=== PATIENT | female | born 1995 | race African-American/Black ===

== ENCOUNTER 2018-11-18 13:50 | Emergency (ER) | payer MEDICAID ==
[~2018-11-18] VITALS: Ht 165.1 cm; Wt 62.6 kg
[2018-11-18] MEDS ORDERED: NKM (14:10)
--- NOTE | 2018-11-18 14:21 | NUR ---
ED Nurse Note: Pt came in from home due to medial abdominal pain with n/v x 4 days, pain 8/10 levi. Emesis was bile and fluid. Last bowel movement was yesterday. AOx4, VSS levi. Will cont to monitor.
--- NOTE | 2018-11-18 14:38 | Emergency Room Report ---
History of Present Illness General Chief Complaint: Abdominal Pain Source: Patient Present Illness [facility] This is an otherwise healthy 23-year-old female who complains of 4 days of nausea and vomiting with crampy abdominal pain. She also complains of some dysuria and foul-smelling urine. She denies any vaginal discharge. She states that she started her period yesterday. She states that she is not able to keep any solid food but is able to keep down liquid. She denies any fever. No other associated symptoms. She denies any back pain. Allergies: Coded Allergies: MORPHINE (Verified Allergy, Unknown, 11/18/18) Patient History Last Menstrual Period: currently on period Now: No Nursing Documentation-[facility] Past Medical History: No Stated History Review of Systems All Other Systems: negative except mentioned in HPI Physical Exam Vital Signs Date Time Temp Pulse Resp B/P (MAP) Pulse Ox O2 Delivery O2 Flow Rate FiO2 11/18/18 14:04 98.4 99 20 112/78 98 Room Air General Appearance: well appearing, no apparent distress Head: normocephalic, atraumatic ENT: hearing grossly normal, normal voice Neck: full range of motion, supple Respiratory: no respiratory distress, speaking full sentences Gastrointestinal: soft, no mass, non-distended, other - mild diffuse tenderness. Musculoskeletal: no calf tenderness Neurologic: alert, normal gait Medical Decision Making Diagnostic Impression: Primary Impression: Abdominal pain ER Course Patient was seen and examined. Delivery concern about ectopic , pyelonephritis, ischemic bowel, bowel obstruction, appendicitis, diverticulitis , pelvic inflammatory disease. When I reexamined the patient, the patient has absolutely no abdominal tenderness. The patient is tolerated by mouth challenge. The patient is afebrile. Urinalysis was reviewed. She does have significant amount of ketones which prompted me to start IV fluids for volume resuscitation. When I reexamined the patient, her abdomen is soft and nontender. At this time, I feel the patient may be treated symptomatically with very close follow-up to her primary care physician to return sooner if is any change in symptoms or worsening symptoms. Laboratory Tests Test 11/18/18 14:25 White Blood Count 5.5 K/UL (4.8-10.8) Red Blood Count 4.66 M/UL (4.20-5.40) Hemoglobin 13.9 G/DL (12.0-16.0) Hematocrit 41.9 % (37.0-47.0) Mean Corpuscular Volume 90 FL (80-99) Mean Corpuscular Hemoglobin 29.9 PG (27.0-31.0) Mean Corpuscular Hemoglobin Concent 33.3 G/DL (32.0-36.0) Red Cell Distribution Width 11.8 % (11.6-14.8) Platelet Count 333 K/UL (150-450) Mean Platelet Volume 7.6 FL (6.5-10.1) Neutrophils (%) (Auto) 64.6 % (45.0-75.0) Lymphocytes (%) (Auto) 28.0 % (20.0-45.0) Monocytes (%) (Auto) 6.0 % (1.0-10.0) Eosinophils (%) (Auto) 0.2 % (0.0-3.0) Basophils (%) (Auto) 1.3 % (0.0-2.0) Urine Color Yellow Urine Appearance Clear Urine pH 6 (4.5-8.0) Urine Specific [place] 1.025 (1.005-1.035) Urine Protein 2+ (NEGATIVE) H Urine Glucose (UA) Negative (NEGATIVE) Urine Ketones 4+ (NEGATIVE) H Urine Blood 1+ (NEGATIVE) H Urine Nitrite Negative (NEGATIVE) Urine Bilirubin Negative (NEGATIVE) Urine Urobilinogen 1 MG/DL (0.0-1.0) H Urine Leukocyte Esterase 1+ (NEGATIVE) H Urine RBC 0-2 /HPF (0 - 2) Urine WBC 2-4 /HPF (0 - 2) Urine Squamous Epithelial Cells Few /LPF (NONE/OCC) Urine Bacteria Few /HPF (NONE) Urine Mucus Moderate /LPF (NONE/OCC) H Sodium Level 141 MMOL/L (136-145) Potassium Level 3.2 MMOL/L (3.5-5.1) L Chloride Level 102 MMOL/L (98-107) Carbon Dioxide Level 27 MMOL/L (21-32) Anion Gap 12 mmol/L (5-15) Blood Urea Nitrogen 13 mg/dL (7-18) Creatinine 1.0 MG/DL (0.55-1.30) Estimate Glomerular Filtration Rate > 60 mL/min (>60) Glucose Level 110 MG/DL (74-106) H Calcium Level 9.2 MG/DL (8.5-10.1) Total Bilirubin 0.4 MG/DL (0.2-1.0) Aspartate Amino Transferase (AST) 33 U/L (15-37) Alanine Aminotransferase (ALT) 33 U/L (12-78) Alkaline Phosphatase 60 U/L (46-116) Total Protein 8.1 G/DL (6.4-8.2) Albumin 4.0 G/DL (3.4-5.0) Globulin 4.1 g/dL Albumin/Globulin Ratio 1.0 (1.0-2.7) Lipase 126 U/L (73-393) Human Chorionic Gonadotropin, Quant 1 mIU/mL (1-6) Last Vital Signs Date Time Temp Pulse Resp B/P (MAP) Pulse Ox O2 Delivery O2 Flow Rate FiO2 11/18/18 14:22 99 20 Room Air 11/18/18 14:04 98.4 112/78 98 Status: improved Disposition: HOME, SELF-CARE Condition: Stable Scripts Famotidine (PEPCID AC) 20 Mg Tablet 20 MG PO BID for 7 Days, #14 TAB 0 Refills Prov: CHECO CLIFTON 11/18/18 Ondansetron Hcl (ZOFRAN) 4 Mg/5 Ml Solution 4 MG ORAL Q6H PRN for Nausea & Vomiting, #10 ML 0 Refills Prov: CHECO CLIFTON 11/18/18 Dicyclomine Hcl (BENTYL) 10 Mg/1 Ml Ampul 10 MG IM QID for pain, #10 AMP 0 Refills Prov: CHECO CLIFTON 11/18/18 Referrals: [facility],REFERRING (PCP) Patient Instructions: Abdominal Pain, Adult CHECO CLIFTON Nov 18, 2018 14:38
[2018-11-18 14:47] LABS: APPEARANCE,URINE CLEAR; BASOPHILS % (AUTO) 1.3 % (0.0-2.0); BILIRUBIN, URINE NEGATIVE (NEGATIVE); EOSINOPHILS % (AUTO) 0.2 % (0.0-3.0); GLUCOSE, URINE (UA) NEGATIVE (NEGATIVE); HEMATOCRIT 41.9 % (37.0-47.0); HEMOGLOBIN 13.9 G/DL (12.0-16.0); KETONES,URINE 4+ (NEGATIVE); LEUKOCYTE ESTERASE ,URINE 1+ (NEGATIVE); MEAN CORPUSCULAR VOLUME 90 FL (80-99); NEUTROPHILS % (AUTO) 64.6 % (45.0-75.0); NITRITE,URINE NEGATIVE (NEGATIVE); PH,URINE 6 (4.5-8.0); PLATELET COUNT 333 K/UL (150-450); PROTEIN,URINE 2+ (NEGATIVE); RED BLOOD COUNT 4.66 M/UL (4.20-5.40); RED CELL DISTRIBUTION WIDTH 11.8 % (11.6-14.8); UROBILINOGEN,URINE 1 MG/DL (0.0-1.0); WHITE BLOOD COUNT 5.5 K/UL (4.8-10.8)
[2018-11-18 14:57] LABS: ANION GAP 12 mmol/L (5-15); BLOOD UREA NITROGEN 13 mg/dL (7-18); CALCIUM 9.2 MG/DL (8.5-10.1); CARBON DIOXIDE 27 MMOL/L (21-32); CHLORIDE 102 MMOL/L (98-107); POTASSIUM 3.2 MMOL/L (3.5-5.1); SODIUM 141 MMOL/L (136-145)
[2018-11-18 14:59] LABS: COLOR,URINE YELLOW
[2018-11-18 15:01] LABS: ALANINE AMINOTRANSFERASE 33 U/L (12-78); ALKALINE PHOSPHATASE 60 U/L (46-116); ASPARTATE AMINO TRANSFERASE 33 U/L (15-37); BILIRUBIN,TOTAL 0.4 MG/DL (0.2-1.0)
[2018-11-18 15:21] VITALS: BP 116/76
[2018-11-18] MEDS ORDERED: Ketorolac 30mg Inj IV ONE (15:30)
[2018-11-18] MEDS ORDERED: BENTYL10 MG/1 ML IM (16:19)
[2018-11-18] MEDS ORDERED: ZOFRAN4 MG/5 ML ORAL (16:19)
[2018-11-18] MEDS ORDERED: PEPCID AC20 M2 PO (16:19)
[2018-11-18 16:44] VITALS: BP 112/69
[2018-11-18 16:45] VITALS: BP 116/76
--- NOTE | 2018-11-18 16:45 | NUR ---
ER DISCHARGE NOTE: Patient is cleared to be discharged per ERMD, pt is aox4, on room air, with stable vital signs. pt was given dc and prescription instructions, pt was able to verbalize understanding, pt id band and iv site removed without complications. pt is able to ambulate with steady gait. pt took all belongings.
== END 2018-11-18 16:45 | disposition home or self-care (01) ==
LOC: EMR 14:25
DX: R10.9 Unspecified abdominal pain (principal); R30.0 Dysuria; R11.2 Nausea with vomiting, unspecified; Z88.5 Allergy status to narcotic agent
CPT/HCPCS: 36415; 80053; 81003; 83690; 84702; 85025; 96361; 96374; 96375; 99284; J1885; J2405; S0028

== ENCOUNTER 2019-01-09 21:01 | Emergency (ER) | payer MEDICAID ==
[~2019-01-09] VITALS: Ht 165.1 cm; Wt 61.7 kg
[~2019-01-09 21:01] MED LIST: BENTYL10 MG/1 ML IM; NKM; PEPCID AC20 M2 PO; ZOFRAN4 MG/5 ML ORAL
[2019-01-09 21:18] VITALS: BP 107/71
--- NOTE | 2019-01-09 21:18 | NUR ---
ED Nurse Note: Pt arrived ED from home, c/o lower abdominal pain and flu like symptums for 2 days. Pt is A/O X4. Vital signs stable at this time. waiting for orders.
--- NOTE | 2019-01-09 21:21 | Emergency Room Report ---
History of Present Illness General Chief Complaint: Flu Like Symptoms Source: Patient Present Illness HPI Is a 23-year-old female with no past medical history. She presents with chief complaint of fever chills and body aches. Also with some foul-smelling urine. Fever subjective. No nausea no vomiting. No sore throat. No cough or congestion. Has not take anything for this. Pain is 7 out of 10. Allergies: Coded Allergies: MORPHINE (Verified Allergy, Unknown, 01/09/19) Patient History Past Medical History: see triage record, old chart reviewed Past Surgical History: none Pertinent Family History: none Social History: Denies: smoking Last Menstrual Period: 12-18-2018 Now: No Immunizations: other Reviewed Nursing Documentation: PMH: Agreed; PSxH: Agreed Review of Systems Constitutional: Reports: chills, fever Eye: Denies: eye pain, blurred vision ENT: Denies: ear pain, nose congestion, throat swelling Respiratory: Denies: cough, shortness of breath Cardiovascular: Denies: chest pain, palpitations Gastrointestinal: Denies: abdominal pain, diarrhea, nausea, vomiting Musculoskeletal: Reports: joint pain; Denies: back pain Skin: Denies: rash Neurological: Denies: headache, numbness Endocrine: Denies: increased thirst, increased urine Hematologic/Lymphatic: Denies: easy bruising All Other Systems: negative except mentioned in HPI Physical Exam Vital Signs Date Time Temp Pulse Resp B/P (MAP) Pulse Ox O2 Delivery O2 Flow Rate FiO2 01/09/19 21:09 98.6 96 16 96 Room Air vitals normal Sp02 EP Interpretation: reviewed, normal General Appearance: well appearing, no apparent distress, alert Head: normocephalic, atraumatic Eyes: bilateral eye PERRL, bilateral eye EOMI ENT: hearing grossly normal, normal pharynx Neck: full range of motion, supple, no meningismus Respiratory: chest non-tender, lungs clear, normal breath sounds Cardiovascular #1: regular rate, rhythm, no murmur Gastrointestinal: normal bowel sounds, non tender, no mass, no organomegaly, no bruit, non-distended Musculoskeletal: back normal, gait/station normal, normal range of motion Psychiatric: mood/affect normal Skin: warm/dry Medical Decision Making Diagnostic Impression: Primary Impression: UTI (urinary tract infection) Qualified Codes: N30.00 - Acute cystitis without hematuria ER Course Patient presents with symptoms consistent with UTI. No evidence of any pyelonephritis or sepsis. We'll discharge home. Last Vital Signs Date Time Temp Pulse Resp B/P (MAP) Pulse Ox O2 Delivery O2 Flow Rate FiO2 01/09/19 21:09 98.6 96 16 96 Room Air Status: improved Disposition: HOME, SELF-CARE Condition: Stable Scripts Ibuprofen* (MOTRIN*) 600 Mg Tablet 600 MG ORAL THREE TIMES A DAY, #30 TAB 0 Refills Prov: Abdiel Colon MD 01/09/19 Cephalexin* (KEFLEX*) 500 Mg Capsule 500 MG ORAL TID, #21 CAP 0 Refills Prov: Abdiel Colon MD 01/09/19 Additional Instructions: Follow-up with your doctor in 7 days. Return if symptom worsen. Abdiel Colon MD January 09, 2019 21:21
--- NOTE | 2019-01-09 21:45 | NUR ---
ED Nurse Note: Meds given as ordered.
[2019-01-09 21:57] LABS: APPEARANCE,URINE CLEAR; BILIRUBIN, URINE NEGATIVE (NEGATIVE); GLUCOSE, URINE (UA) NEGATIVE (NEGATIVE); KETONES,URINE 1+ (NEGATIVE); LEUKOCYTE ESTERASE ,URINE 1+ (NEGATIVE); NITRITE,URINE NEGATIVE (NEGATIVE); PH,URINE 6 (4.5-8.0); PROTEIN,URINE 2+ (NEGATIVE); UROBILINOGEN,URINE 1 MG/DL (0.0-1.0)
[2019-01-09 22:00] LABS: COLOR,URINE YELLOW
[2019-01-09] MEDS ORDERED: CEPHALEXIN500 MG ORAL (22:10)
[2019-01-09] MEDS ORDERED: IBUPROFEN600 MG ORAL (22:10)
[2019-01-09] MEDS ORDERED: Cephalexin 500mg cap ORAL ONE (22:15)
[2019-01-09 22:17] VITALS: BP 105/70
--- NOTE | 2019-01-09 22:17 | NUR ---
ER DISCHARGE NOTE: Patient is cleared to be discharged per Dr. Colon. Pt is aox4 on room air with stable vital signs. Pt was given D/C and prescription instructions and was able to verbalize understanding. Pt's ID band removed. Pt is able to ambulate with steady gait and took all belongings.
== END 2019-01-09 22:17 | disposition home or self-care (01) ==
LOC: EMR 21:22
DX: N39.0 Urinary tract infection, site not specified (principal); Z88.5 Allergy status to narcotic agent
CPT/HCPCS: 81003; 81025; 87086; 87181; 99283

== ENCOUNTER 2019-07-22 22:39 | Emergency (ER) | payer MEDICAID ==
[~2019-07-22] VITALS: Ht 162.6 cm; Wt 63.5 kg
[~2019-07-22 22:39] MED LIST changes: +CEPHALEXIN500 MG ORAL; +IBUPROFEN600 MG ORAL
--- NOTE | 2019-07-22 22:56 | NUR ---
ED Nurse Note: Pt ambulated to ed c/o mid back pain x 2-3 days. pt states pain is nonradiating and her norco is ineffective. pt urine specimen collected and sent to lab.
[2019-07-22 22:59] VITALS: BP 124/73
--- NOTE | 2019-07-22 23:22 | NUR ---
ED Nurse Note: pt was given pain medication. pt tolerated well.
[2019-07-22 23:27] LABS: APPEARANCE,URINE CLEAR; BILIRUBIN, URINE NEGATIVE (NEGATIVE); GLUCOSE, URINE (UA) NEGATIVE (NEGATIVE); KETONES,URINE 1+ (NEGATIVE); LEUKOCYTE ESTERASE ,URINE 1+ (NEGATIVE); NITRITE,URINE NEGATIVE (NEGATIVE); PH,URINE 6 (4.5-8.0); PROTEIN,URINE 1+ (NEGATIVE); UROBILINOGEN,URINE 1 MG/DL (0.0-1.0)
[2019-07-22] MEDS ORDERED: PERCOCET 5-3251 EACH ORAL (23:27)
[2019-07-22] MEDS ORDERED: IBUPROFEN600 MG ORAL (23:27)
[2019-07-22] MEDS ORDERED: LIDODERM700 M1 TOPIC (23:27)
--- NOTE | 2019-07-22 23:28 | Emergency Room Report ---
History of Present Illness General Chief Complaint: Back Pain-No Injury Source: Patient Present Illness [facility] This a 23-year-old female who had severe scoliosis as a kid. She required surgery and Ruiz lance placement. She presents with chief complaint of back pain. She get this occasionally. Recent pain started about 2 3 days ago. Localized to the upper back area. Pain is sharp. Worse with sitting on her feet. 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 This made the pain worse. No nausea no vomiting. No fever chills. No radiation. No focal deficit. Pain is 8 out of 10. Patient also want to check to see his have a urinary tract infection. Allergies: Coded Allergies: MORPHINE (Verified Allergy, Unknown, 01/09/19) Patient History Past Medical History: see triage record, old chart reviewed Past Surgical History: other Pertinent Family History: none Social History: Denies: smoking Last Menstrual Period: 07/17/19 Now: No : 3 Para: 1 Immunizations: other Reviewed Nursing Documentation: PMH: Agreed; PSxH: Agreed Nursing Documentation-[facility] Past Medical History: No Stated History Review of Systems Eye: Denies: eye pain, blurred vision ENT: Denies: ear pain, nose congestion, throat swelling Respiratory: Denies: cough, shortness of breath Cardiovascular: Denies: chest pain, palpitations Gastrointestinal: Denies: abdominal pain, diarrhea, nausea, vomiting Musculoskeletal: Reports: back pain; Denies: joint pain Skin: Denies: rash Neurological: Denies: headache, numbness Endocrine: Denies: increased thirst, increased urine Hematologic/Lymphatic: Denies: easy bruising All Other Systems: negative except mentioned in HPI Physical Exam Vital Signs Date Time Temp Pulse Resp B/P (MAP) Pulse Ox O2 Delivery O2 Flow Rate FiO2 07/22/19 22:50 98.4 88 17 124/73 (90) 98 Room Air vitals normal Sp02 EP Interpretation: reviewed, normal General Appearance: well appearing, no apparent distress, alert Head: normocephalic, atraumatic Eyes: bilateral eye PERRL, bilateral eye EOMI ENT: hearing grossly normal, normal pharynx Neck: full range of motion, supple, no meningismus Respiratory: chest non-tender, lungs clear, normal breath sounds Cardiovascular #1: regular rate, rhythm, no murmur Gastrointestinal: normal bowel sounds, non tender, no mass, no organomegaly, no bruit, non-distended Musculoskeletal: back normal - Midline scar from Ruiz lance. No redness. Diffuse tenderness., gait/station normal, normal range of motion Psychiatric: mood/affect normal Medical Decision Making Diagnostic Impression: Primary Impression: Back pain Qualified Codes: M54.6 - Pain in thoracic spine ER Course Patient presents with exacerbation of her chronic back pain. No evidence of cauda equina syndrome, spinal rib abscess or neoplastic process. Last Vital Signs Date Time Temp Pulse Resp B/P (MAP) Pulse Ox O2 Delivery O2 Flow Rate FiO2 07/22/19 22:59 98.4 88 17 124/73 98 Room Air Status: improved Disposition: HOME, SELF-CARE Condition: Stable Scripts Lidocaine Patch* (Lidoderm Patch*) 1 Each Adh..patch 1 PATCH TOPIC DAILY, #7 PATCH 0 Refills Patch(es) may remain in place for up to 12 hours in any 24-hour period. Prov: Abdiel Colon MD 07/22/19 Oxycodone/Acetaminophen 5-325* (PERCOCET 5-325 MG TABLET*) 1 Each Tablet 1 TAB ORAL Q6H PRN for For Pain, #20 TAB Prov: Abdeil Colon MD 07/22/19 Ibuprofen* (MOTRIN*) 600 Mg Tablet 600 MG ORAL THREE TIMES A DAY, #30 TAB 0 Refills Prov: Abdiel Colon MD 07/22/19 Referrals: NON PHYSICIAN (PCP) Patient Instructions: Back Pain, Adult Additional Instructions: Follow-up with your doctor in 7 days. No heavy lifting. If continue with pain , may need an MRI. Return if symptoms worsen. Abdiel Colon MD Jul 22, 2019 23:28
[2019-07-22] MEDS ORDERED: HYDROmorphone 1mg/ml Carpuject IM ONE (23:30)
[2019-07-22 23:34] LABS: COLOR,URINE PALE YELLOW
[2019-07-22 23:45] VITALS: BP 120/73
--- NOTE | 2019-07-22 23:45 | NUR ---
ED Nurse Note: pt dc per ermd, pt is aox4, friend will drive pt home. pt id band removed. pt give dc and rx instructions. pt verbalized understanding
== END 2019-07-22 23:45 | disposition home or self-care (01) ==
LOC: EMR 22:53
DX: M54.6 Pain in thoracic spine (principal); Z88.6 Allergy status to analgesic agent
CPT/HCPCS: 81003; 96372; J1170; Z7502; 99283

== ENCOUNTER 2019-08-13 16:03 | Emergency (ER) | payer MEDICAID ==
[~2019-08-13] VITALS: Ht 165.1 cm; Wt 62.6 kg
[~2019-08-13 16:03] MED LIST changes: +LIDODERM700 M1 TOPIC; +PERCOCET 5-3251 EACH ORAL
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
[2019-08-13 16:27] VITALS: BP 105/73
[2019-08-13] MEDS ORDERED: LIDODERM700 M1 TOPIC (17:00)
[2019-08-13] MEDS ORDERED: PERCOCET 10-321 EAC1 ORAL (17:00)
[2019-08-13] MEDS ORDERED: oxyCODONE HCL/Acetaminophen 5/325mg ORAL ONE (17:00)
== END 2019-08-13 17:20 | disposition home or self-care (01) ==
LOC: EMR 16:55
DX: S20.211A Contusion of right front wall of thorax, initial encounter (principal); M54.9 Dorsalgia, unspecified; M62.830 Muscle spasm of back; Z88.6 Allergy status to analgesic agent; V43.62XA Car passenger injured in collision with other type car in traffic accident, initial encounter; Y92.410 Unspecified street and highway as the place of occurrence of the external cause
CPT/HCPCS: 99282

== ENCOUNTER 2020-01-22 23:19 | Emergency (ER) | payer MEDICAID ==
[~2020-01-22] VITALS: Ht 162.6 cm; Wt 66.2 kg
[~2020-01-22 23:19] MED LIST changes: +PERCOCET 10-321 EAC1 ORAL; +ROBAXIN-750750 MG PO
--- NOTE | 2020-01-22 23:38 | NUR ---
ED Nurse Note: Pt ambulated to ED from home c/o vomiting all day today, pt unable to count how many times. Pt denies possibility of being due to IUD. Pt is a daily marijuana smoker, ERMD at bedside
--- NOTE | 2020-01-22 23:46 | Emergency Room Report ---
History of Present Illness General Chief Complaint: Vomiting Source: Patient Present Illness HPI Patient is a 24-year-old female presents after increased nausea and vomiting. Reports having multiple episodes of vomiting associated with decreased appetite. Reports having previous IUD. Denies being . Denies any abdominal pain. Denies any diarrhea. Previous scoliosis surgery. Had not been having any fever. Allergies: Coded Allergies: MORPHINE (Verified Allergy, Unknown, 01/09/19) COVID-19 Screening Contact w/high risk pt: No Recent Travel to affected area: No Experienced COVID-19 symptoms?: No COVID-19 Testing performed WIRELESS SALES MANAGER: No Patient History Past Medical History: see triage record Last Menstrual Period: unk Now: No : 3 Para: 1 Reviewed Nursing Documentation: PMH: Agreed; PSxH: Agreed Nursing Documentation-PMH Hx Cardiac Problems: No - hld Review of Systems All Other Systems: negative except mentioned in HPI Physical Exam Vital Signs Date Time Temp Pulse Resp B/P (MAP) Pulse Ox O2 Delivery O2 Flow Rate FiO2 01/22/20 23:30 98.4 92 16 112/71 (85) 97 Room Air Sp02 EP Interpretation: reviewed, normal General Appearance: normal inspection, well appearing, no apparent distress, alert, GCS 15 Head: atraumatic ENT: normal ENT inspection, hearing grossly normal, normal voice Neck: normal inspection, full range of motion, supple, no bony tend Respiratory: normal inspection, lungs clear, normal breath sounds, no respiratory distress, no retraction, no wheezing Cardiovascular #1: regular rate, rhythm, no edema Gastrointestinal: normal inspection, normal bowel sounds, non tender, soft, no guarding, no hernia Genitourinary: no CVA tenderness Musculoskeletal: normal inspection, back normal, normal range of motion Neurologic: alert, motor strength/tone normal, bass viol repairer III-XII nml as tested, oriented x3, responsive, speech normal, normal inspection Psychiatric: normal inspection, judgement/insight normal, mood/affect normal Skin: no rash Medical Decision Making Diagnostic Impression: Primary Impression: Marijuana use Additional Impression: Urinary tract infection ER Course Patient presented for abdominal pain. Differential diagnosis includes not limited to cyclic vomiting, bowel obstruction, gastroenteritis among others. Because of complexity of patient's case laboratory tests and imaging studies were ordered. Patient was noted to have history of near daily marijuana use. Patient was given IV fluids as well as IV antiemetics.Patient presented stable for close outpatient follow-up with her primary care physician. She was advised marijuana cessation. The patient is advised to follow up with primary care doctor in 1-2 days. Patient is advised to return if any worsening condition or if any changes in status that are concerning. This report is dictated with [employer] superintendent compressor stations software which may occasionally lead to discrepancies related to use of this software. Labs Test 01/22/20 23:45 01/23/20 00:00 Urine Color Yellow Urine Appearance Slightly cloudy Urine pH 6 (4.5-8.0) Urine Specific [place] 1.025 (1.005-1.035) Urine Protein 2+ (NEGATIVE) Urine Glucose (UA) Negative (NEGATIVE) Urine Ketones 4+ (NEGATIVE) Urine Blood Negative (NEGATIVE) Urine Nitrite Negative (NEGATIVE) Urine Bilirubin Negative (NEGATIVE) Urine Urobilinogen 1 MG/DL (0.0-1.0) Urine Leukocyte Esterase 2+ (NEGATIVE) Urine RBC 2-4 /HPF (0 - 2) Urine WBC 40-60 /HPF (0 - 2) Urine Squamous Epithelial Cells Many /LPF (NONE/OCC) Urine Bacteria Few /HPF (NONE) Urine HCG, Qualitative Negative (NEGATIVE) White Blood Count 10.1 K/UL (4.8-10.8) Red Blood Count 4.59 M/UL (4.20-5.40) Hemoglobin 14.5 G/DL (12.0-16.0) Hematocrit 40.0 % (37.0-47.0) Mean Corpuscular Volume 87 FL (80-99) Mean Corpuscular Hemoglobin 31.5 PG (27.0-31.0) Mean Corpuscular Hemoglobin Concent 36.2 G/DL (32.0-36.0) Red Cell Distribution Width 11.3 % (11.6-14.8) Platelet Count 274 K/UL (150-450) Mean Platelet Volume 7.4 FL (6.5-10.1) Neutrophils (%) (Auto) 77.4 % (45.0-75.0) Lymphocytes (%) (Auto) 17.5 % (20.0-45.0) Monocytes (%) (Auto) 4.3 % (1.0-10.0) Eosinophils (%) (Auto) 0.0 % (0.0-3.0) Basophils (%) (Auto) 0.7 % (0.0-2.0) Sodium Level 144 MMOL/L (136-145) Potassium Level 3.7 MMOL/L (3.5-5.1) Chloride Level 105 MMOL/L (98-107) Carbon Dioxide Level 23 MMOL/L (21-32) Anion Gap 16 mmol/L (5-15) Blood Urea Nitrogen 15 mg/dL (7-18) Creatinine 0.9 MG/DL (0.55-1.30) Estimat Glomerular Filtration Rate > 60 mL/min (>60) Glucose Level 108 MG/DL (74-106) Calcium Level 9.1 MG/DL (8.5-10.1) Total Bilirubin 0.6 MG/DL (0.2-1.0) Aspartate Amino Transf (AST/SGOT) 23 U/L (15-37) Alanine Aminotransferase (ALT/SGPT) 21 U/L (12-78) Alkaline Phosphatase 56 U/L (46-116) Total Protein 8.0 G/DL (6.4-8.2) Albumin 4.1 G/DL (3.4-5.0) Globulin 3.9 g/dL Albumin/Globulin Ratio 1.1 (1.0-2.7) Lipase 111 U/L (73-393) Last Vital Signs Date Time Temp Pulse Resp B/P (MAP) Pulse Ox O2 Delivery O2 Flow Rate FiO2 01/22/20 23:30 98.4 92 16 112/71 (85) 97 Room Air Status: improved Disposition: HOME, SELF-CARE Condition: Stable Scripts Ondansetron Odt* (ZOFRAN ODT*) 4 Mg Tab.rapdis 4 MG BC EVERY 8 HOURS, #20 TAB 0 Refills Prov: Byron Jara MD 01/23/20 Cephalexin* (KEFLEX*) 500 Mg Capsule 500 MG ORAL EVERY 6 HOURS, #28 CAP Prov: Byron Jara MD 01/23/20 Referrals: [facility],REFERRING (PCP) Byron Jara MD January 22, 2020 23:46
[2020-01-22 23:58] VITALS: BP 112/71
[2020-01-23 00:10] LABS: APPEARANCE,URINE SLIGHTLY CLOUDY; BILIRUBIN, URINE NEGATIVE (NEGATIVE); GLUCOSE, URINE (UA) NEGATIVE (NEGATIVE); KETONES,URINE 4+ (NEGATIVE); LEUKOCYTE ESTERASE ,URINE 2+ (NEGATIVE); NITRITE,URINE NEGATIVE (NEGATIVE); PH,URINE 6 (4.5-8.0); PROTEIN,URINE 2+ (NEGATIVE); UROBILINOGEN,URINE 1 MG/DL (0.0-1.0)
[2020-01-23 00:10] LABS: BASOPHILS % (AUTO) 0.7 % (0.0-2.0); HEMOGLOBIN 14.5 G/DL (12.0-16.0); LYMPHOCYTES % (AUTO) 17.5 % (20.0-45.0); MEAN CORPUSCULAR VOLUME 87 FL (80-99); MONOCYTES % (AUTO) 4.3 % (1.0-10.0); NEUTROPHILS % (AUTO) 77.4 % (45.0-75.0); PLATELET COUNT 274 K/UL (150-450); RED BLOOD COUNT 4.59 M/UL (4.20-5.40); RED CELL DISTRIBUTION WIDTH 11.3 % (11.6-14.8); WHITE BLOOD COUNT 10.1 K/UL (4.8-10.8)
[2020-01-23 00:19] LABS: COLOR,URINE YELLOW
[2020-01-23 00:22] LABS: ANION GAP 16 mmol/L (5-15); BLOOD UREA NITROGEN 15 mg/dL (7-18); CALCIUM 9.1 MG/DL (8.5-10.1); CARBON DIOXIDE 23 MMOL/L (21-32); CHLORIDE 105 MMOL/L (98-107); CREATININE 0.9 MG/DL (0.55-1.30); POTASSIUM 3.7 MMOL/L (3.5-5.1); SODIUM 144 MMOL/L (136-145)
[2020-01-23 00:27] LABS: ALANINE AMINOTRANSFERASE 21 U/L (12-78); ALBUMIN 4.1 G/DL (3.4-5.0); ALBUMIN/GLOBULIN RATIO 1.1 (1.0-2.7); ALKALINE PHOSPHATASE 56 U/L (46-116); ASPARTATE AMINO TRANSFERASE 23 U/L (15-37); BILIRUBIN,TOTAL 0.6 MG/DL (0.2-1.0)
[2020-01-23] MEDS ORDERED: CEPHALEXIN500 MG ORAL (01:52)
[2020-01-23] MEDS ORDERED: ONDANSETRON ODT4 MG BC (01:52)
[2020-01-23] MEDS ORDERED: Cephalexin 500mg cap ORAL ONE (02:00)
[2020-01-23] MEDS ORDERED: Capsaicin 0.075% Cream TOPIC ONE (02:00)
[2020-01-23 02:34] VITALS: BP 112/71
== END 2020-01-23 02:34 | disposition home or self-care (01) ==
LOC: EMR 23:41
DX: R11.2 Nausea with vomiting, unspecified (principal); Z88.6 Allergy status to analgesic agent; E78.5 Hyperlipidemia, unspecified; R10.9 Unspecified abdominal pain
CPT/HCPCS: 36415; 80053; 81003; 81025; 83690; 85025; 87086; 96361; 96374; J2405; J7030; Z7502; 99284

== ENCOUNTER 2020-02-15 20:46 | Emergency (ER) | payer MEDICAID ==
[~2020-02-15] VITALS: Ht 162.6 cm; Wt 65.3 kg
[~2020-02-15 20:46] MED LIST changes: +ONDANSETRON ODT4 MG BC
--- NOTE | 2020-02-15 21:09 | Emergency Room Report ---
History of Present Illness General Chief Complaint: Abdominal Pain Present Illness HPI Patient presents with complaints of epigastric discomfort abdominal cramping burning sensation in esophageal area and several episodes of vomiting Reports that the sensation in the symptoms started today Reports that yesterday and the day before that she had no symptoms denies any chest pain or shortness of breath denies any diarrhea denies any lower abdominal pain Denies any flank pain patient has had several presentations with similar discomfort And reports that she has not been able to see anyone as far as specialty follow- up (Marlin Monzon DO) Allergies: Coded Allergies: MORPHINE (Verified Allergy, Unknown, 01/09/19) COVID-19 Screening Contact w/high risk pt: No Recent Travel to affected area: No Experienced COVID-19 symptoms?: No COVID-19 Testing performed DIRT SHOVELER: No (Marlin Monzon DO) Patient History Past Medical History: see triage record Last Menstrual Period: 01/09/2020 Reviewed Nursing Documentation: PMH: Agreed; PSxH: Agreed (Marlin Monzon DO) Nursing Documentation-PMH Hx Cardiac Problems: No - hld (Marlin Monzon DO) Review of Systems All Other Systems: negative except mentioned in HPI (Marlin Monzon DO) Physical Exam Vital Signs Date Time Temp Pulse Resp B/P (MAP) Pulse Ox O2 Delivery O2 Flow Rate FiO2 02/15/20 20:54 98.6 65 18 118/81 (93) 99 Room Air Sp02 EP Interpretation: reviewed, normal General Appearance: no apparent distress - However reports feeling actively nauseated Head: normocephalic, atraumatic Eyes: bilateral eye PERRL, bilateral eye EOMI ENT: hearing grossly normal, normal pharynx, TMs + canals normal, uvula midline Neck: full range of motion, supple, no meningismus, no bony tend Respiratory: lungs clear, normal breath sounds, no rhonchi, no respiratory distress, no retraction, no accessory muscle use Cardiovascular #1: normal peripheral pulses, regular rate, rhythm, no edema, no gallop, no JVD, no murmur Gastrointestinal: normal bowel sounds, non tender, soft, no mass, no organomegaly, non-distended, no guarding, no hernia, no pulsatile mass, no rebound Musculoskeletal: normal inspection Neurologic: motor strength/tone normal, blood donor recruiter III-XII nml as tested, oriented x3 , sensory intact, responsive Psychiatric: mood/affect normal Skin: no rash Lymphatic: normal inspection, no adenopathy (Marlin Monzon DO) Medical Decision Making Diagnostic Impression: Primary Impression: Nausea and vomiting ER Course With the patient's history and examination, multiple differentials considered, including but not limited to , ectopic , ovarian torsion, gastritis, cholecystitis, pancreatitis, appendicitis Patient has had recent presentation with similar discomfort Abdomen is at this time soft my suspicion for appendicitis is low Patient will have initial broad-spectrum blood work initiated (Marlin Monzon DO) ER Course Patient signed out to me pending laboratory studies and reassessment. Laboratory studies showed no significant abnormalities. Patient on my assessment resting comfortably no active vomiting no acute distress. Low suspicion for surgical abdominal disease or other emergent process. Patient stable for discharge. Discharged with antiemetics and antacids. Follow-up PMD , given return precautions. (Ike Blanca M.D.) Last Vital Signs Date Time Temp Pulse Resp B/P (MAP) Pulse Ox O2 Delivery O2 Flow Rate FiO2 02/15/20 20:54 98.6 65 18 118/81 (93) 99 Room Air (Marlin Monzon DO) Status: improved (Ike Blanca M.D.) Disposition: HOME, SELF-CARE Condition: Stable Scripts Famotidine* (Pepcid 20mg tablet*) 20 Mg Tablet 20 MG ORAL TWICE A DAY, #60 TAB 0 Refills Prov: Ike Blanca M.D. 02/15/20 Ondansetron Odt* (ZOFRAN ODT*) 4 Mg Tab.rapdis 4 MG BC EVERY 8 HOURS, #20 TAB 0 Refills Prov: Ike Blanca M.D. 02/15/20 Marlin Monzon DO Feb 15, 2020 21:09 Ike Blanca M.D. Feb 16, 2020 02:46
[2020-02-15] MEDS ORDERED: DiphenhydrAMINE 50mg/ml Inj IVP ONE (21:15)
[2020-02-15] MEDS ORDERED: Metoclopramide 10mg/2ml Inj IVP ONE (21:15)
[2020-02-15] MEDS ORDERED: LORazepam Inj 2mg/ml 1ml IV ONE (21:15)
--- NOTE | 2020-02-15 21:20 | NUR ---
ED Nurse Note: Recieved pt from home, in bed awake, alert and orietned x 4, here with c/o mid to upper epigastric pain since am, pt has hx of cyclic vomiting due to marijuanna use and admits to continuing to use and stating its not from that, no emesis noted, pt states was saliva and about 3 times, pt immediately asking what meds shes gona get, pt is slightly non-cooperative and refuses urine sample at this time, and MD ye is aware. will resume care as ordered and continue to closely monitor.
[2020-02-15 21:44] LABS: BASOPHILS % (AUTO) 0.7 % (0.0-2.0); HEMATOCRIT 42.5 % (37.0-47.0); HEMOGLOBIN 13.6 G/DL (12.0-16.0); LYMPHOCYTES % (AUTO) 21.6 % (20.0-45.0); MEAN CORPUSCULAR VOLUME 96 FL (80-99); MONOCYTES % (AUTO) 3.5 % (1.0-10.0); NEUTROPHILS % (AUTO) 74.3 % (45.0-75.0); PLATELET COUNT 263 K/UL (150-450); RED BLOOD COUNT 4.44 M/UL (4.20-5.40); RED CELL DISTRIBUTION WIDTH 12.6 % (11.6-14.8); WHITE BLOOD COUNT 7.8 K/UL (4.8-10.8)
[2020-02-15 21:55] LABS: ANION GAP 10 mmol/L (5-15); BLOOD UREA NITROGEN 7 mg/dL (7-18); CALCIUM 8.8 MG/DL (8.5-10.1); CARBON DIOXIDE 28 MMOL/L (21-32); CHLORIDE 103 MMOL/L (98-107); CREATININE 0.9 MG/DL (0.55-1.30); SODIUM 141 MMOL/L (136-145)
[2020-02-15 21:59] LABS: ALANINE AMINOTRANSFERASE 13 U/L (12-78); ALBUMIN 3.8 G/DL (3.4-5.0); ALBUMIN/GLOBULIN RATIO 1.1 (1.0-2.7); ALKALINE PHOSPHATASE 51 U/L (46-116); ASPARTATE AMINO TRANSFERASE 20 U/L (15-37); BILIRUBIN,TOTAL 0.4 MG/DL (0.2-1.0)
--- NOTE | 2020-02-15 22:00 | NUR ---
ED Nurse Note: Meds given effective, pt sleeping, v/s stable, no acitve emesis, will continue to closely montior.
[2020-02-15] MEDS ORDERED: FAMOTIDINE20 MG ORAL (23:26)
[2020-02-15] MEDS ORDERED: ONDANSETRON ODT4 MG BC (23:26)
[2020-02-15 23:30] VITALS: BP 121/74
[2020-02-15 23:45] VITALS: BP 121/74
== END 2020-02-15 23:45 | disposition home or self-care (01) ==
LOC: EMR 21:05
DX: R11.2 Nausea with vomiting, unspecified (principal); Z88.6 Allergy status to analgesic agent; E78.5 Hyperlipidemia, unspecified
CPT/HCPCS: 36415; 80053; 83690; 85025; 96361; 96374; 96375; J1200; J2765; J7030; Z7502; 99284

== ENCOUNTER 2020-04-03 17:35 | Emergency (ER) | payer MEDICAID ==
[~2020-04-03] VITALS: Ht 165.1 cm; Wt 63.5 kg
[~2020-04-03 17:35] MED LIST changes: +FAMOTIDINE20 MG ORAL
[2020-04-03 17:58] VITALS: BP 104/73
[2020-04-03 17:58] LABS: APPEARANCE,URINE SLIGHTLY CLOUDY; BILIRUBIN, URINE NEGATIVE (NEGATIVE); COLOR,URINE PALE YELLOW; GLUCOSE, URINE (UA) NEGATIVE (NEGATIVE); KETONES,URINE 3+ (NEGATIVE); LEUKOCYTE ESTERASE ,URINE 1+ (NEGATIVE); NITRITE,URINE NEGATIVE (NEGATIVE); PH,URINE 6.5 (4.5-8.0); PROTEIN,URINE 1+ (NEGATIVE); UROBILINOGEN,URINE NORMAL MG/DL (0.0-1.0)
--- NOTE | 2020-04-03 18:00 | NUR ---
ED Nurse Note: Patient ambulated to ED d/t nausea/dizziness and vomited for 5 times started today; pt also complains of low back pain. Patient AAO x 4 , VSS at this time, skin is warm to touch.
--- NOTE | 2020-04-03 18:11 | Emergency Room Report ---
History of Present Illness General Chief Complaint: Vomiting Source: Patient Present Illness HPI 24-year-old female presents to the emergency department complaining of multiple episodes of vomiting without nausea since this morning. Patient reports she is vomiting what appears to look like bile. She denies blood in the vomit. She also is reporting exacerbation of her chronic back pain. Patient reports she has a history of scoliosis and has a metal lance in her back. Patient denies or suspicion of . She denies fevers or chills. She denies recent travel or persons with similar symptoms. Patient states that she has had a similar episode of persistent vomiting in the past. Patient denies history of acid reflux. Patient does report that she did use marijuana products couple hours prior to onset of her symptoms. Patient denies abdominal pain or tenderness. She denies constipation or diarrhea. No other aggravating or relieving factors at this time. She denies Headache, CP, palpitations, Dizziness, trauma or fall. Allergies: Coded Allergies: MORPHINE (Verified Allergy, Unknown, 01/09/19) COVID-19 Screening Contact w/high risk pt: No Recent Travel to affected area: No Experienced COVID-19 symptoms?: Yes COVID-19 Testing performed MANAGER SHIP: No Patient History Past Medical History: see triage record Past Surgical History: none Pertinent Family History: none Last Menstrual Period: 03/27/20 Now: No Reviewed Nursing Documentation: PMH: Agreed; PSxH: Agreed Nursing Documentation-PMH Hx Cardiac Problems: No - hld Review of Systems All Other Systems: negative except mentioned in HPI Physical Exam Vital Signs Date Time Temp Pulse Resp B/P (MAP) Pulse Ox O2 Delivery O2 Flow Rate FiO2 04/03/20 17:38 98.4 86 18 104/73 (83) 97 Room Air Sp02 EP Interpretation: reviewed, normal General Appearance: no apparent distress, alert, GCS 15, non-toxic Head: normocephalic, atraumatic Eyes: bilateral eye normal inspection, bilateral eye PERRL ENT: hearing grossly normal, normal voice Neck: full range of motion Respiratory: lungs clear, normal breath sounds, speaking full sentences Cardiovascular #1: regular rate, rhythm Gastrointestinal: normal bowel sounds, non tender, soft Genitourinary: normal inspection, no CVA tenderness Musculoskeletal: back normal, normal range of motion, gait/station normal, non- tender Neurologic: alert, motor strength/tone normal, oriented x3, sensory intact, responsive, speech normal Psychiatric: judgement/insight normal Skin: no rash, normal color Medical Decision Making PA Attestation Dr. Blanca is my supervising Physician whom patient management has been discussed with. Diagnostic Impression: Primary Impression: Nausea and vomiting Qualified Codes: R11.2 - Nausea with vomiting, unspecified ER Course 24-year-old female presents to the emergency department complaining of multiple episodes of vomiting without nausea since this morning. Patient reports she is vomiting what appears to look like bile. She denies blood in the vomit. She also is reporting exacerbation of her chronic back pain. Patient reports she has a history of scoliosis and has a metal lance in her back. Patient denies or suspicion of . She denies fevers or chills. She denies recent travel or persons with similar symptoms. Patient states that she has had a similar episode of persistent vomiting in the past. Patient denies history of acid reflux. Patient does report that she did use marijuana products couple hours prior to onset of her symptoms. Patient denies abdominal pain or tenderness. She denies constipation or diarrhea. No other aggravating or relieving factors at this time. She denies Headache, CP, palpitations, Dizziness, trauma or fall. Ddx considered but are not limited to GE, colitis, acute appy, SBO, Cyclical Vomiting secondary to THC, * , COVID-19 Vital signs: pt. is afebrile, H&PE are most consistent with GE most likely cannabinoid induced, no evidence to suggest acute abdomen on physical exam. Pt. non-toxic in appearance. ORDERS: -None required at this time, the dx is clinical. -Urine Hcg: Negative -UDS Positive for THC and Opiates -CBC: WNL -CMP: WNL ED INTERVENTIONS: - -Zofran 4mg IV -Pepcid IV -Capsaicin cream TP -500cc NS -I do not identify an emergent condition at this time. With current presentation , pt. is stable for close outpatient follow up and conservative treatment. D/ w pt. to return promptly to ED with worsening or new symptoms.- Pt. verbalizes' understanding and agreement with proposed treatment plan.proposed treatment plan. This patient was evaluated in the context of the global COVID-19 pandemic, which necessitated consideration that the patient might be at risk for infection with the SARS-COV-2 virus that causes COVID-19. Institutional protocols and algorithms that pertaining to the evaluation of patients at risk for COVID-19 are in a state of rapid change based on information released by multiple regulatory bodies including the CDC and federal and state organizations. These policies and algorithms were followed during the patient' s care in the emergency department DISCHARGE: At this time pt. is stable for d/c to home. Will provide printed patient care instructions, and any necessary prescriptions. Care plan and follow up instructions have been discussed with the patient prior to discharge. Labs Test 04/03/20 17:49 04/03/20 18:11 Urine Color Pale yellow Urine Appearance Slightly cloudy Urine pH 6.5 (4.5-8.0) Urine Specific [place] 1.015 (1.005-1.035) Urine Protein 1+ (NEGATIVE) Urine Glucose (UA) Negative (NEGATIVE) Urine Ketones 3+ (NEGATIVE) Urine Blood 1+ (NEGATIVE) Urine Nitrite Negative (NEGATIVE) Urine Bilirubin Negative (NEGATIVE) Urine Urobilinogen Normal MG/DL (0.0-1.0) Urine Leukocyte Esterase 1+ (NEGATIVE) Urine RBC 2-4 /HPF (0 - 2) Urine WBC 2-4 /HPF (0 - 2) Urine Squamous Epithelial Cells Moderate /LPF (NONE/OCC) Urine Bacteria Few /HPF (NONE) Urine HCG, Qualitative Negative (NEGATIVE) Urine Opiates Screen Positive (NEGATIVE) Urine Barbiturates Screen Negative (NEGATIVE) Phencyclidine (PCP) Screen Negative (NEGATIVE) Urine Amphetamines Screen Negative (NEGATIVE) Urine Benzodiazepines Screen Negative (NEGATIVE) Urine Cocaine Screen Negative (NEGATIVE) Urine Marijuana (THC) Screen Positive (NEGATIVE) White Blood Count 5.1 K/UL (4.8-10.8) Red Blood Count 4.53 M/UL (4.20-5.40) Hemoglobin 13.9 G/DL (12.0-16.0) Hematocrit 42.8 % (37.0-47.0) Mean Corpuscular Volume 95 FL (80-99) Mean Corpuscular Hemoglobin 30.6 PG (27.0-31.0) Mean Corpuscular Hemoglobin Concent 32.4 G/DL (32.0-36.0) Red Cell Distribution Width 12.8 % (11.6-14.8) Platelet Count 250 K/UL (150-450) Mean Platelet Volume 8.9 FL (6.5-10.1) Neutrophils (%) (Auto) 57.4 % (45.0-75.0) Lymphocytes (%) (Auto) 34.2 % (20.0-45.0) Monocytes (%) (Auto) 6.3 % (1.0-10.0) Eosinophils (%) (Auto) 1.2 % (0.0-3.0) Basophils (%) (Auto) 0.9 % (0.0-2.0) Sodium Level 139 MMOL/L (136-145) Potassium Level 3.9 MMOL/L (3.5-5.1) Chloride Level 103 MMOL/L (98-107) Carbon Dioxide Level 29 MMOL/L (21-32) Anion Gap 7 mmol/L (5-15) Blood Urea Nitrogen 10 mg/dL (7-18) Creatinine 0.9 MG/DL (0.55-1.30) Estimat Glomerular Filtration Rate > 60 mL/min (>60) Glucose Level 101 MG/DL (74-106) Calcium Level 9.1 MG/DL (8.5-10.1) Total Bilirubin 0.2 MG/DL (0.2-1.0) Aspartate Amino Transf (AST/SGOT) 19 U/L (15-37) Alanine Aminotransferase (ALT/SGPT) 16 U/L (12-78) Alkaline Phosphatase 59 U/L (46-116) Total Protein 7.9 G/DL (6.4-8.2) Albumin 4.2 G/DL (3.4-5.0) Globulin 3.7 g/dL Albumin/Globulin Ratio 1.1 (1.0-2.7) Last Vital Signs Date Time Temp Pulse Resp B/P (MAP) Pulse Ox O2 Delivery O2 Flow Rate FiO2 04/03/20 17:58 86 18 Room Air 04/03/20 17:58 98.4 104/73 97 Disposition: HOME, SELF-CARE Condition: Stable Scripts Famotidine* (Pepcid 20mg tablet*) 20 Mg Tablet 20 MG ORAL TWICE A DAY for 7 Days, #14 TAB 0 Refills Prov: Ame Ybarra 04/03/20 Capsaicin (CAPSAICIN) 42.5 Gm Cream..g. 1 APPLIC TP TID for Vomiting, #42.5 GM Prov: Ame Ybarra 04/03/20 Referrals: NON PHYSICIAN (PCP) Daylin Lynn. [facility] Patient Instructions: Nausea and Vomiting, Adult Additional Instructions: Take medications as directed. Follow up with a Primary Care Provider in 3-5 days, even if your symptoms have resolved. --Please review list of primary care clinics, if you do not already have a primary care provider Return sooner to ED if new symptoms occur, or current symptoms become worse. - Please note that this Emergency Department Report was dictated using [id number] vendor technology software, occasionally this can lead to erroneous entry secondary to interpretation by the dictation equipment. Ame Ybarra Apr 03, 2020 18:11
[2020-04-03 18:23] LABS: BASOPHILS % (AUTO) 0.9 % (0.0-2.0); EOSINOPHILS % (AUTO) 1.2 % (0.0-3.0); HEMATOCRIT 42.8 % (37.0-47.0); HEMOGLOBIN 13.9 G/DL (12.0-16.0); LYMPHOCYTES % (AUTO) 34.2 % (20.0-45.0); MEAN CORPUSCULAR VOLUME 95 FL (80-99); MONOCYTES % (AUTO) 6.3 % (1.0-10.0); NEUTROPHILS % (AUTO) 57.4 % (45.0-75.0); PLATELET COUNT 250 K/UL (150-450); RED BLOOD COUNT 4.53 M/UL (4.20-5.40); RED CELL DISTRIBUTION WIDTH 12.8 % (11.6-14.8); WHITE BLOOD COUNT 5.1 K/UL (4.8-10.8)
[2020-04-03 18:32] LABS: ANION GAP 7 mmol/L (5-15); BLOOD UREA NITROGEN 10 mg/dL (7-18); CALCIUM 9.1 MG/DL (8.5-10.1); CARBON DIOXIDE 29 MMOL/L (21-32); CHLORIDE 103 MMOL/L (98-107); CREATININE 0.9 MG/DL (0.55-1.30); POTASSIUM 3.9 MMOL/L (3.5-5.1); SODIUM 139 MMOL/L (136-145)
[2020-04-03 18:37] LABS: ALANINE AMINOTRANSFERASE 16 U/L (12-78); ALBUMIN 4.2 G/DL (3.4-5.0); ALBUMIN/GLOBULIN RATIO 1.1 (1.0-2.7); ALKALINE PHOSPHATASE 59 U/L (46-116); ASPARTATE AMINO TRANSFERASE 19 U/L (15-37); BILIRUBIN,TOTAL 0.2 MG/DL (0.2-1.0)
[2020-04-03] MEDS ORDERED: Capsaicin 0.075% Cream TOPIC ONE (19:00)
[2020-04-03] MEDS ORDERED: CAPSAICIN42.5 GM TP (20:07)
[2020-04-03] MEDS ORDERED: FAMOTIDINE20 MG ORAL (20:07)
[2020-04-03 22:04] VITALS: BP 104/73
== END 2020-04-03 22:05 | disposition home or self-care (01) ==
LOC: EMR 17:58
DX: R11.2 Nausea with vomiting, unspecified (principal); Z88.6 Allergy status to analgesic agent; E78.5 Hyperlipidemia, unspecified
CPT/HCPCS: 36415; 80053; 80307; 81003; 81025; 85025; 96374; 96375; 96376; J2405; J7040; S0028; Z7502; 99284

== ENCOUNTER 2020-04-05 21:33 | Emergency (ER) | payer MEDICAID ==
[~2020-04-05] VITALS: Ht 165.1 cm; Wt 64.4 kg
[~2020-04-05 21:33] MED LIST changes: +CAPSAICIN42.5 GM TP
[2020-04-05 21:52] VITALS: BP 99/72
[2020-04-05 22:20] LABS: BASOPHILS % (AUTO) 0.6 % (0.0-2.0); EOSINOPHILS % (AUTO) 0.2 % (0.0-3.0); HEMATOCRIT 41.9 % (37.0-47.0); HEMOGLOBIN 13.9 G/DL (12.0-16.0); LYMPHOCYTES % (AUTO) 39.8 % (20.0-45.0); MEAN CORPUSCULAR VOLUME 93 FL (80-99); MONOCYTES % (AUTO) 12.4 % (1.0-10.0); PLATELET COUNT 244 K/UL (150-450); RED BLOOD COUNT 4.49 M/UL (4.20-5.40); RED CELL DISTRIBUTION WIDTH 12.5 % (11.6-14.8); WHITE BLOOD COUNT 4.8 K/UL (4.8-10.8)
[2020-04-05 22:32] LABS: ANION GAP 9 mmol/L (5-15); BLOOD UREA NITROGEN 13 mg/dL (7-18); CALCIUM 9.2 MG/DL (8.5-10.1); CARBON DIOXIDE 30 MMOL/L (21-32); CHLORIDE 103 MMOL/L (98-107); POTASSIUM 3.5 MMOL/L (3.5-5.1); SODIUM 141 MMOL/L (136-145)
[2020-04-05 22:36] LABS: ALANINE AMINOTRANSFERASE 18 U/L (12-78); ALBUMIN 4.3 G/DL (3.4-5.0); ALBUMIN/GLOBULIN RATIO 1.2 (1.0-2.7); ALKALINE PHOSPHATASE 60 U/L (46-116); ASPARTATE AMINO TRANSFERASE 18 U/L (15-37); BILIRUBIN,TOTAL 0.4 MG/DL (0.2-1.0)
--- NOTE | 2020-04-05 23:05 | Emergency Room Report ---
History of Present Illness General Chief Complaint: Nausea, Vomiting, and Diarrhea Source: Patient Present Illness HPI 24-year-old female presents the ED for evaluation. Complaining of nausea vomiting and some diarrhea. Started 2 days ago. Denies any abdominal pain. Denies any fevers or chills. States she feels weak because she has not had food in a few days. Denies sick contacts or recent travel. No other aggravating relieving factors. Denies any other associated symptoms Allergies: Coded Allergies: MORPHINE (Verified Allergy, Unknown, 01/09/19) COVID-19 Screening Contact w/high risk pt: No Recent Travel to affected area: No Experienced COVID-19 symptoms?: No COVID-19 Testing performed HOUSE WRECKER: No Patient History Past Medical History: none Past Surgical History: other - scoliosis Pertinent Family History: none Social History: Reports: drug use - marijuna; Denies: smoking, alcohol use Last Menstrual Period: 03/27/20 Now: No : 3 Para: 1 Immunizations: UTD Reviewed Nursing Documentation: PMH: Agreed; PSxH: Agreed Nursing Documentation-PMH Hx Cardiac Problems: Yes - murmur, hld Hx Neurological Problems: Yes - scoliosis/ metal lance Review of Systems All Other Systems: negative except mentioned in HPI Physical Exam Vital Signs Date Time Temp Pulse Resp B/P (MAP) Pulse Ox O2 Delivery O2 Flow Rate FiO2 04/05/20 21:35 98.8 86 18 99/72 (81) 97 Room Air Sp02 EP Interpretation: reviewed, normal General Appearance: no apparent distress, alert, GCS 15, non-toxic Head: normocephalic, atraumatic Eyes: bilateral eye normal inspection, bilateral eye PERRL ENT: hearing grossly normal, normal pharynx, no angioedema, normal voice Neck: full range of motion, supple/symm/no masses Respiratory: chest non-tender, lungs clear, normal breath sounds, speaking full sentences Cardiovascular #1: regular rate, rhythm, no edema Cardiovascular #2: 2+ carotid (R), 2+ carotid (L), 2+ radial (R), 2+ radial (L) , 2+ dorsalis pedis (R), 2+ dorsalis pedis (L) Gastrointestinal: normal bowel sounds, non tender, soft, non-distended, no guarding, no rebound Rectal: deferred Genitourinary: normal inspection, no CVA tenderness Musculoskeletal: back normal, normal range of motion, gait/station normal, non- tender Neurologic: alert, motor strength/tone normal, oriented x3, sensory intact, responsive, speech normal Psychiatric: judgement/insight normal, memory normal, mood/affect normal, no suicidal/homicidal ideation Reflexes: 3+ bicep (R), 3+ bicep (L), 3+ tricep (R), 3+ tricep (L), 3+ knee (R) , 3+ knee (L) Lymphatic: no adenopathy Medical Decision Making Diagnostic Impression: Primary Impression: Gastritis Qualified Codes: K29.00 - Acute gastritis without bleeding ER Course Hospital Course 24-year-old F presents to ED with nausea and vomiting differential diagnosis: gastritis, SBO, cholecystits Clinical course Patient placed on stretcher. 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 After initial history and physical I ordered labs, IV fluids, zofran and pepcid Labs - no leukocytosis, no electrolyte abnormalities, LFTs normal, UDS + THC On reassessment symptoms improved. Tolerated p.o. challenge in ED. Given GI cocktail. Patient has been here multiple times for similar presentation. I believe patient would benefit from outpatient GI work-up. I will provide referrals. Safe for discharge with close outpatient follow-up I feel this is a highly complex case requiring extensive working including EKG/ Rhythm strip, Xray/CT/US, Blood/urine lab work, repeat exams while in ED, and administration of strong opiates/narcotics for pain control, admission to hospital or close patient follow up. Diagnosis - gastritis Stable and discharged to home with prescriptions for pepcid and zofran. Followup with PMD. Return to ED if symptoms recur or worsen Laboratory Tests Test 04/05/20 22:00 White Blood Count 4.8 K/UL (4.8-10.8) Red Blood Count 4.49 M/UL (4.20-5.40) Hemoglobin 13.9 G/DL (12.0-16.0) Hematocrit 41.9 % (37.0-47.0) Mean Corpuscular Volume 93 FL (80-99) Mean Corpuscular Hemoglobin 30.9 PG (27.0-31.0) Mean Corpuscular Hemoglobin Concent 33.1 G/DL (32.0-36.0) Red Cell Distribution Width 12.5 % (11.6-14.8) Platelet Count 244 K/UL (150-450) Mean Platelet Volume 8.8 FL (6.5-10.1) Neutrophils (%) (Auto) 47.0 % (45.0-75.0) Lymphocytes (%) (Auto) 39.8 % (20.0-45.0) Monocytes (%) (Auto) 12.4 % (1.0-10.0) H Eosinophils (%) (Auto) 0.2 % (0.0-3.0) Basophils (%) (Auto) 0.6 % (0.0-2.0) Urine Color Yellow Urine Appearance Slightly cloudy Urine pH 6 (4.5-8.0) Urine Specific [place] 1.025 (1.005-1.035) Urine Protein 2+ (NEGATIVE) H Urine Glucose (UA) Negative (NEGATIVE) Urine Ketones 4+ (NEGATIVE) H Urine Blood 5+ (NEGATIVE) H Urine Nitrite Negative (NEGATIVE) Urine Bilirubin Negative (NEGATIVE) Urine Urobilinogen 1 MG/DL (0.0-1.0) H Urine Leukocyte Esterase 1+ (NEGATIVE) H Urine RBC Tntc /HPF (0 - 2) H Urine WBC 2-4 /HPF (0 - 2) Urine Squamous Epithelial Cells Many /LPF (NONE/OCC) H Urine Bacteria Few /HPF (NONE) Urine HCG, Qualitative Negative (NEGATIVE) Sodium Level 141 MMOL/L (136-145) Potassium Level 3.5 MMOL/L (3.5-5.1) Chloride Level 103 MMOL/L (98-107) Carbon Dioxide Level 30 MMOL/L (21-32) Anion Gap 9 mmol/L (5-15) Blood Urea Nitrogen 13 mg/dL (7-18) Creatinine 1.0 MG/DL (0.55-1.30) Estimat Glomerular Filtration Rate > 60 mL/min (>60) Glucose Level 89 MG/DL (74-106) Calcium Level 9.2 MG/DL (8.5-10.1) Total Bilirubin 0.4 MG/DL (0.2-1.0) Aspartate Amino Transf (AST/SGOT) 18 U/L (15-37) Alanine Aminotransferase (ALT/SGPT) 18 U/L (12-78) Alkaline Phosphatase 60 U/L (46-116) Total Protein 8.0 G/DL (6.4-8.2) Albumin 4.3 G/DL (3.4-5.0) Globulin 3.7 g/dL Albumin/Globulin Ratio 1.2 (1.0-2.7) Lipase 121 U/L (73-393) Human Chorionic Gonadotropin, Quant 3 mIU/mL (1-6) Urine Opiates Screen Negative (NEGATIVE) Urine Barbiturates Screen Negative (NEGATIVE) Phencyclidine (PCP) Screen Negative (NEGATIVE) Urine Amphetamines Screen Negative (NEGATIVE) Urine Benzodiazepines Screen Negative (NEGATIVE) Urine Cocaine Screen Negative (NEGATIVE) Urine Marijuana (THC) Screen Positive (NEGATIVE) H Last Vital Signs Date Time Temp Pulse Resp B/P (MAP) Pulse Ox O2 Delivery O2 Flow Rate FiO2 04/05/20 21:52 98.8 86 18 99/72 97 Room Air Status: improved Disposition: HOME, SELF-CARE Condition: Stable Scripts Famotidine* (Pepcid 20mg tablet*) 20 Mg Tablet 20 MG ORAL DAILY, #30 TAB 0 Refills Prov: Paco Restrepo MD 04/06/20 Ondansetron Odt* (ZOFRAN ODT*) 4 Mg Tab.rapdis 4 MG BC EVERY 6 HOURS PRN for Nausea & Vomiting, #20 TAB 0 Refills Prov: Paco Restrepo MD 04/06/20 Cephalexin* (KEFLEX*) 500 Mg Capsule 500 MG ORAL EVERY 6 HOURS for 7 Days, #28 CAP Prov: Paco Restrepo MD 04/06/20 Referrals: [facility],REFERRING (PCP) Paco Restrepo MD Apr 05, 2020 23:05
[2020-04-05 23:28] LABS: APPEARANCE,URINE SLIGHTLY CLOUDY; BILIRUBIN, URINE NEGATIVE (NEGATIVE); GLUCOSE, URINE (UA) NEGATIVE (NEGATIVE); KETONES,URINE 4+ (NEGATIVE); LEUKOCYTE ESTERASE ,URINE 1+ (NEGATIVE); NITRITE,URINE NEGATIVE (NEGATIVE); PH,URINE 6 (4.5-8.0); PROTEIN,URINE 2+ (NEGATIVE); UROBILINOGEN,URINE 1 MG/DL (0.0-1.0)
[2020-04-05 23:32] LABS: COLOR,URINE YELLOW
[2020-04-06] VITALS: BP 114/78
[2020-04-06] MEDS ORDERED: Mylanta II UD 30ml ORAL ONE (00:45)
[2020-04-06] MEDS ORDERED: Lidocaine 2% Visc 15ml soln ORAL ONE (00:45)
[2020-04-06] MEDS ORDERED: Dicyclomine HCl 10mg/5ml oral soln ORAL ONE (00:45)
[2020-04-06] MEDS ORDERED: FAMOTIDINE20 MG ORAL (01:56)
[2020-04-06] MEDS ORDERED: CEPHALEXIN500 MG ORAL (01:56)
[2020-04-06] MEDS ORDERED: ONDANSETRON ODT4 MG BC (01:56)
[2020-04-06 01:58] VITALS: BP 134/76
== END 2020-04-06 02:05 | disposition home or self-care (01) ==
LOC: EMR 22:06
DX: K29.00 Acute gastritis without bleeding (principal); M41.9 Scoliosis, unspecified; F12.90 Cannabis use, unspecified, uncomplicated; Z88.6 Allergy status to analgesic agent
CPT/HCPCS: 36415; 80053; 80307; 81003; 81025; 83690; 84702; 85025; 96361; 96374; 96375; J2405; J7030; S0028; Z7502; 99284

== ENCOUNTER 2020-08-02 16:48 | Emergency (ER) | payer MEDICAID ==
[~2020-08-02] VITALS: Ht 165.1 cm; Wt 65.8 kg
[2020-08-02 17:06] VITALS: BP 115/83
--- NOTE | 2020-08-02 17:09 | NUR ---
ED Nurse Note: Patient from home and walked in due to lower abd pain for a couple days. States her discharge smells like"bleach". Patient AAO x4, VSS at this time.
[2020-08-02] MEDS ORDERED: Azithromycin 250mg tab ORAL ONE (17:30)
[2020-08-02] MEDS ORDERED: Lidocaine 1% MPF 10mg/ml 5ml INJ ONE (17:30)
[2020-08-02 17:38] LABS: BILIRUBIN, URINE NEGATIVE (NEGATIVE); GLUCOSE, URINE (UA) NEGATIVE (NEGATIVE); KETONES,URINE 1+ (NEGATIVE); LEUKOCYTE ESTERASE ,URINE 1+ (NEGATIVE); NITRITE,URINE NEGATIVE (NEGATIVE); PH,URINE 8 (4.5-8.0); PROTEIN,URINE NEGATIVE (NEGATIVE); UROBILINOGEN,URINE NORMAL MG/DL (0.0-1.0)
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
[2020-08-02] MEDS ORDERED: METRONIDAZOLE500 MG ORAL (17:48)
[2020-08-02 17:52] LABS: APPEARANCE,URINE SLIGHTLY CLOUDY; COLOR,URINE YELLOW
[2020-08-02 18:14] VITALS: BP 115/83
--- NOTE | 2020-08-02 18:15 | NUR ---
ED Nurse Note: Pt cleared by health care Provider for discharge. DC instructions/prescription was given and explained to pt and verbalized understanding of teachings. All medical deviecs such as ID band removed. Pt is AAO x4, ambulatory and left with all personal belongings.
== END 2020-08-02 18:14 | disposition home or self-care (01) ==
LOC: EMR 17:23
DX: N76.0 Acute vaginitis (principal); Z88.6 Allergy status to analgesic agent; M41.9 Scoliosis, unspecified
CPT/HCPCS: 81003; 81025; 87086; 96372; J0696; Q0144; Z7502; 99283

== ENCOUNTER 2020-11-22 09:03 | Emergency (ER) | payer SELFPAY ==
[~2020-11-22] VITALS: Ht 165.1 cm; Wt 68.0 kg
[~2020-11-22 09:03] MED LIST changes: +METRONIDAZOLE500 MG ORAL
[2020-11-22 09:33] VITALS: BP 111/73
[2020-11-22] MEDS ORDERED: Dicyclomine HCl 10mg/5ml oral soln ORAL ONE (09:45)
[2020-11-22] MEDS ORDERED: Mylanta II UD 30ml ORAL ONE (09:45)
[2020-11-22] MEDS ORDERED: Lidocaine 2% Visc 15ml soln ORAL ONE (09:45)
--- NOTE | 2020-11-22 09:52 | Emergency Room Report ---
History of Present Illness General Chief Complaint: Abdominal Pain Source: Patient Present Illness HPI 25-year-old female presents with abdominal pain started yesterday after eating some takeout food. Pain is epigastric, sharp burning, 6 out of 10, nonradiating. Notes nausea and vomiting. Notes some watery loose stools. Denies chest pain or shortness of breath. Denies fevers or chills. No other aggravating relieving factors. Denies any other associated symptoms Allergies: Coded Allergies: MORPHINE (Verified Allergy, Unknown, 01/09/19) COVID-19 Screening Contact w/high risk pt: No Recent Travel to affected area: No Experienced COVID-19 symptoms?: No Patient History Past Medical History: GERD Past Surgical History: none Pertinent Family History: none Social History: Denies: smoking, alcohol use, drug use Now: No Immunizations: UTD Reviewed Nursing Documentation: PMH: Agreed; PSxH: Agreed Nursing Documentation-PMH Hx Cardiac Problems: Yes - murmur, hld Hx Neurological Problems: Yes - scoliosis/ metal lance Review of Systems All Other Systems: negative except mentioned in HPI Physical Exam Sp02 EP Interpretation: reviewed, normal General Appearance: no apparent distress, alert, GCS 15, non-toxic Head: normocephalic, atraumatic Eyes: bilateral eye normal inspection, bilateral eye PERRL ENT: hearing grossly normal, normal pharynx, no angioedema, normal voice Neck: full range of motion, supple/symm/no masses Respiratory: chest non-tender, lungs clear, normal breath sounds, speaking full sentences Cardiovascular #1: regular rate, rhythm, no edema Cardiovascular #2: 2+ carotid (R), 2+ carotid (L), 2+ radial (R), 2+ radial (L), 2+ dorsalis pedis (R), 2+ dorsalis pedis (L) Gastrointestinal: normal bowel sounds, non tender, soft, non-distended, no guarding, no rebound Rectal: deferred Genitourinary: normal inspection, no CVA tenderness Musculoskeletal: back normal, normal range of motion, gait/station normal, non- tender Neurologic: alert, motor strength/tone normal, oriented x3, sensory intact, responsive, speech normal Psychiatric: judgement/insight normal, memory normal, mood/affect normal, no nicholson icidal/homicidal ideation Reflexes: 3+ bicep (R), 3+ bicep (L), 3+ tricep (R), 3+ tricep (L), 3+ knee (R), 3+ knee (L) Lymphatic: no adenopathy Medical Decision Making Diagnostic Impression: Primary Impression: Gastritis Qualified Codes: K29.00 - Acute gastritis without bleeding Additional Impression: Urinary tract infection Qualified Codes: N39.0 - Urinary tract infection, site not specified ER Course Hospital Course 25-year-old M presents to ED with abdominal pain Differential diagnosis includes-appendicitis, cholecystitis, small bowel obstruction, gastritis, Clinical course Patient placed on stretcher. After initial history and physical I ordered labs, IV fluids, medications Labs - no leukocytosis, electrolytes okay, UA some bacteria and blood noted CT scan shows no acute pathology I discussed findings with patient. Will discharge home with antibiotics. Safe for discharge with close outpatient follow-up. States she has a PMD I feel this is a highly complex case requiring extensive working including EKG/Rhythm strip, Xray/CT/US, Blood/urine lab work, repeat exams while in ED, and administration of strong opiates/narcotics for pain control, admission to hospital or close patient follow up. Diagnosis -gastritis, UTI Stable and discharged to home. Followup with PMD. Return to ED if symptoms recur or worsen Labs Test 11/22/20 09:35 White Blood Count 10.0 K/UL (4.8-10.8) Red Blood Count 4.50 M/UL (4.20-5.40) Hemoglobin 13.3 G/DL (12.0-16.0) Hematocrit 41.5 % (37.0-47.0) Mean Corpuscular Volume 92 FL (80-99) Mean Corpuscular Hemoglobin 29.7 PG (27.0-31.0) Mean Corpuscular Hemoglobin Concent 32.2 G/DL (32.0-36.0) Red Cell Distribution Width 12.6 % (11.6-14.8) Platelet Count 283 K/UL (150-450) Mean Platelet Volume 8.6 FL (6.5-10.1) Neutrophils (%) (Auto) 70.8 % (45.0-75.0) Lymphocytes (%) (Auto) 21.8 % (20.0-45.0) Monocytes (%) (Auto) 6.5 % (1.0-10.0) Eosinophils (%) (Auto) 0.2 % (0.0-3.0) Basophils (%) (Auto) 0.7 % (0.0-2.0) Urine Color Yellow Urine Appearance Slightly cloudy Urine pH 5 (4.5-8.0) Urine Specific [place] 1.030 (1.005-1.035) Urine Protein 2+ (NEGATIVE) Urine Glucose (UA) Negative (NEGATIVE) Urine Ketones 4+ (NEGATIVE) Urine Blood 2+ (NEGATIVE) Urine Nitrite Negative (NEGATIVE) Urine Bilirubin Negative (NEGATIVE) Urine Urobilinogen Normal MG/DL (0.0-1.0) Urine Leukocyte Esterase 1+ (NEGATIVE) Urine RBC 2-4 /HPF (0 - 2) Urine WBC 20-30 /HPF (0 - 2) Urine Squamous Epithelial Cells Few /LPF (NONE/OCC) Urine Bacteria Few /HPF (NONE) Urine HCG, Qualitative Negative (NEGATIVE) Sodium Level 142 MMOL/L (136-145) Potassium Level 3.6 MMOL/L (3.5-5.1) Chloride Level 104 MMOL/L (98-107) Carbon Dioxide Level 26 MMOL/L (21-32) Anion Gap 12 mmol/L (5-15) Blood Urea Nitrogen 15 mg/dL (7-18) Creatinine 0.9 MG/DL (0.55-1.30) Estimat Glomerular Filtration Rate > 60 mL/min (>60) Glucose Level 97 MG/DL (74-106) Calcium Level 9.6 MG/DL (8.5-10.1) Total Bilirubin 0.6 MG/DL (0.2-1.0) Aspartate Amino Transf (AST/SGOT) 21 U/L (15-37) Alanine Aminotransferase (ALT/SGPT) 24 U/L (12-78) Alkaline Phosphatase 57 U/L (46-116) Total Protein 8.1 G/DL (6.4-8.2) Albumin 4.3 G/DL (3.4-5.0) Globulin 3.8 g/dL Albumin/Globulin Ratio 1.1 (1.0-2.7) Lipase 97 U/L (73-393) CT/MRI/US Diagnostic Results CT/MRI/US Diagnostic Results : Imaging Test Ordered: CT A/P Impression Procedure: CT Abdomen Pelvis w/Contrast Clinical Indication: Abdominal pain since yesterday, epigastric, sharp, burning, 6 out of 10, nausea, vomiting, watery loose stools Technique: No oral contrast utilized, per emergency room physician request IV administration nonionic contrast. Venous phase spiral acquisition obtained through the abdomen and pelvis. Multiplanar reconstructions were generated. Total dose length product 244 mGycm. CTDIvol(s) 4 mGy. Dose reduction achieved using automated exposure control Comparison: none Findings: Lack of enteric contrast limits assessment of the GI tract. The appendix is normal. No evidence of diverticulosis or diverticulitis. No small bowel distention. No free or loculated intraperitoneal gas or fluid is evident. Distal esophagus, stomach, duodenum are unremarkable. The liver, gallbladder, bile ducts, pancreas, spleen, adrenals, kidneys are unremarkable. No retroperitoneal or mesenteric mass or adenopathy. No pelvic m ass or adenopathy. The uterus is retroverted, contains an intrauterine device which appears well-positioned. There is evidence of prior thoracolumbar spine surgery. The bones are otherwise unremarkable. The included lung bases are clear. Impression: Limited assessment of the GI tract, due to lack of enteric contrast administration No definite acute process Incidental findings as noted, including evidence of prior thoracolumbar spine surgery, intrauterine device The CT scanner at [facility] is accredited by the [employer] and the scans are performed using protocols designed to limit radiatio n exposure to as low as reasonably achievable to attain images of sufficient resolution adequate for diagnostic evaluation. Status: improved Disposition: HOME, SELF-CARE Condition: Stable Scripts Cephalexin* (KEFLEX*) 500 Mg Capsule 500 MG ORAL EVERY 6 HOURS, #28 CAP Prov: Paco Restrepo MD 11/22/20 Ondansetron Odt* (ZOFRAN ODT*) 4 Mg Tab.rapdis 4 MG BC EVERY 8 HOURS, #10 TAB 0 Refills Prov: Paco Restrepo MD 11/22/20 Famotidine* (Pepcid 20mg tablet*) 20 Mg Tablet 20 MG ORAL DAILY for Gerd, #30 TAB 0 Refills Prov: Paco Restrepo MD 11/22/20 Paco Restrepo MD Nov 22, 2020 09:52
--- NOTE | 2020-11-22 09:52 | NUR ---
Patient reports abdominal pain and vomiting pain x 2d. Medical hx of high cholesterol and heart murmur. Allergy: morphine (patient that she has been told by her mother that morphine is to strong for her, so she lists it as an allergy)
[2020-11-22 10:04] LABS: BASOPHILS % (AUTO) 0.7 % (0.0-2.0); EOSINOPHILS % (AUTO) 0.2 % (0.0-3.0); HEMATOCRIT 41.5 % (37.0-47.0); HEMOGLOBIN 13.3 G/DL (12.0-16.0); LYMPHOCYTES % (AUTO) 21.8 % (20.0-45.0); MEAN CORPUSCULAR VOLUME 92 FL (80-99); MONOCYTES % (AUTO) 6.5 % (1.0-10.0); NEUTROPHILS % (AUTO) 70.8 % (45.0-75.0); PLATELET COUNT 283 K/UL (150-450); RED CELL DISTRIBUTION WIDTH 12.6 % (11.6-14.8)
[2020-11-22 10:11] LABS: ANION GAP 12 mmol/L (5-15); BLOOD UREA NITROGEN 15 mg/dL (7-18); CALCIUM 9.6 MG/DL (8.5-10.1); CARBON DIOXIDE 26 MMOL/L (21-32); CHLORIDE 104 MMOL/L (98-107); CREATININE 0.9 MG/DL (0.55-1.30); POTASSIUM 3.6 MMOL/L (3.5-5.1); SODIUM 142 MMOL/L (136-145)
[2020-11-22 10:16] LABS: ALANINE AMINOTRANSFERASE 24 U/L (12-78); ALBUMIN 4.3 G/DL (3.4-5.0); ALBUMIN/GLOBULIN RATIO 1.1 (1.0-2.7); ALKALINE PHOSPHATASE 57 U/L (46-116); ASPARTATE AMINO TRANSFERASE 21 U/L (15-37); BILIRUBIN,TOTAL 0.6 MG/DL (0.2-1.0)
[2020-11-22 10:18] LABS: APPEARANCE,URINE SLIGHTLY CLOUDY; BILIRUBIN, URINE NEGATIVE (NEGATIVE); GLUCOSE, URINE (UA) NEGATIVE (NEGATIVE); KETONES,URINE 4+ (NEGATIVE); LEUKOCYTE ESTERASE ,URINE 1+ (NEGATIVE); NITRITE,URINE NEGATIVE (NEGATIVE); PH,URINE 5 (4.5-8.0); PROTEIN,URINE 2+ (NEGATIVE); UROBILINOGEN,URINE NORMAL MG/DL (0.0-1.0)
[2020-11-22 10:23] LABS: COLOR,URINE YELLOW
[2020-11-22] MEDS ORDERED: Ketorolac 30mg Inj IV ONE (11:00)
--- NOTE | 2020-11-22 13:44 | Diagnostic Imaging Report ---
Clinical Indication: Abdominal pain since yesterday, epigastric, sharp, burning, 6 out of 10, nausea, vomiting, watery loose stools Technique: No oral contrast utilized, per emergency room physician request IV administration nonionic contrast. Venous phase spiral acquisition obtained through the abdomen and pelvis. Multiplanar reconstructions were generated. Total dose length product 244 mGycm. CTDIvol(s) 4 mGy. Dose reduction achieved using automated exposure control Comparison: none Findings: Lack of enteric contrast limits assessment of the GI tract. The appendix is normal. No evidence of diverticulosis or diverticulitis. No small bowel distention. No free or loculated intraperitoneal gas or fluid is evident. Distal esophagus, stomach, duodenum are unremarkable. The liver, gallbladder, bile ducts, pancreas, spleen, adrenals, kidneys are unremarkable. No retroperitoneal or mesenteric mass or adenopathy. No pelvic mass or adenopathy. The uterus is retroverted, contains an intrauterine device which appears well-positioned. There is evidence of prior thoracolumbar spine surgery. The bones are otherwise unremarkable. The included lung bases are clear. Impression: Limited assessment of the GI tract, due to lack of enteric contrast administration No definite acute process Incidental findings as noted, including evidence of prior thoracolumbar spine surgery, intrauterine device The CT scanner at [facility] is accredited by the [employer] and the scans are performed using protocols designed to limit radiation exposure to as low as reasonably achievable to attain images of sufficient resolution adequate for diagnostic evaluation.
[2020-11-22] MEDS ORDERED: FAMOTIDINE20 MG ORAL (13:57)
[2020-11-22] MEDS ORDERED: ONDANSETRON ODT4 MG BC (13:57)
[2020-11-22] MEDS ORDERED: CEPHALEXIN500 MG ORAL (13:57)
== END 2020-11-22 14:03 | disposition home or self-care (01) ==
LOC: EMR 09:48
DX: K29.00 Acute gastritis without bleeding (principal); N39.0 Urinary tract infection, site not specified; K21.9 Gastro-esophageal reflux disease without esophagitis; Z88.6 Allergy status to analgesic agent; E78.5 Hyperlipidemia, unspecified; M41.9 Scoliosis, unspecified; Z97.5 Presence of (intrauterine) contraceptive device
CPT/HCPCS: 36415; 74177; 80053; 81003; 81025; 83690; 85025; 87086; 96361; 96374; 96375; 99284; J1885; J2405; J7030; Q9965; S0028